=== PATIENT | female | born 1970 | race Caucasian/White ===

== ENCOUNTER 2020-04-02 12:45 | Emergency (ER) | payer OTHER ==
[2020-04-02 12:55] VITALS: BP 109/74; PULSE 77; TEMP 98.9; BMI 34.2
--- NOTE | 2020-04-02 13:17 | PDOC ---
History of Present Illness - General Chief Complaint: Injury Stated Complaint: FALL/RT WRIST/ RT LEG PAIN Time Seen by Provider: 04/02/20 13:02 - History of Present Illness Initial Comments: 04/02/20 13:13 49-year-old female without comorbidities presents for evaluation of right wrist and right knee pain after a fall while going up the steps. While ascending the steps she missed stepped on the last step falling injuring her right wrist and knee no prior problems with either area Past History - Medical History Allergies/Adverse Reactions: Allergies Allergy/AdvReac Type Severity Reaction Status Date / Time No Known Allergies Allergy Unverified 04/02/20 12:55 Cancer: Yes COPD: No - Reproductive History Is Patient Now?: No - Psycho-Social/Smoking History Smoking History: Never smoked Have you smoked in the past 12 months: No Information on smoking cessation initiated: No - Substance Abuse Hx (Audit-C & DAST Scrn) How often the patient has a drink containing alcohol: Monthly or less Number of drinks the patient has on a typical day: 1 or 2 How often the patient has six or more drinks on one occasion: Never Score: In Men: 4 or > Positive; In Women: 3 or > Positive: 1 Screen Result (Pos requires Nsg. Audit-10AR): Negative In the last yr the pt used illegal drug/Rx for NonMed reason: No Score: Yes response is considered Positive: 0 Screen Result (Positive result requires Nsg. DAST-10): Negative Review of Systems - Review of Systems Musculoskeletal: Yes: Joint Pain *Physical Exam - Vital Signs Last Vital Signs Temp Pulse Resp BP Pulse Ox 98.9 F 77 18 109/74 100 04/02/20 12:47 04/02/20 12:47 04/02/20 12:47 04/02/20 12:47 04/02/20 12:47 - Physical Exam 04/02/20 13:14 Right wrist skin color and temperature normal range of motion is full. There is full range of motion of the elbow forearm and fingers. Without gross sensorimotor deficits small superficial abrasion on the dorsum of the right wrist just ulnar to the DRUJ. No tenderness at the DRUJ ulnar styloid scaphoid radial styloid soft upper extremity compartments nontender. Right knee skin color and temperature normal range of motion is full there is a small superficial abrasion on the anterior aspect of the right knee extensor mechanism is intact no instability thighs and calf soft and nontender normal range of motion of the hip and ankle neurovascular intact. Medical Decision Making - Medical Decision Making 04/02/20 13:14 Patient has no tenderness only superficial abrasions. I see no reason to radiate her at this time. We will have her take Tylenol and Motrin for pain and have orthopedic surgery follow-up should she have further issues. I have reviewed the pathophysiology with the patient. They are in agreement with the treatment plan all questions were answered to their satisfaction. Understanding for follow-up without fail was also conveyed to the patient. Again they are in agreement. Discharge - Discharge Information Problems reviewed: Yes Clinical Impression/Diagnosis: Abrasion of right wrist, Abrasion, right knee, initial encounter Condition: Stable Disposition: HOME - Admission No - Follow up/Referral Referrals: Roberto Rodrigues DO [Staff Physician] - - Patient Discharge Instructions Additional Instructions: Return to the emergency room for further issues and without fail follow-up with orthopedic surgery in 2 to 3 days for further evaluation and treatment options. Tylenol and Motrin as directed for pain. - Post Discharge Activity Work/Back to School Note: Back to Work
== END 2020-04-02 13:18 | disposition home or self-care (01) ==
LOC: JERFT 12:45
DX: S80.211A Abrasion, right knee, initial encounter (principal); S60.811A Abrasion of right wrist, initial encounter; W10.8XXA Fall (on) (from) other stairs and steps, initial encounter
CPT/HCPCS: 99282-25

== ENCOUNTER 2021-05-01 16:07 | Emergency (ER) | payer OTHER ==
[2021-05-01 16:11] VITALS: BP 101/69; PULSE 80; TEMP 98.4; BMI 32.5
[2021-05-01] MEDS ORDERED: FLUORESCEIN NA 1 EA STRIP OD ONE (16:26)
[2021-05-01] MEDS ORDERED: TETRACAINE 0.5% HCL 0.6ML DROPPER.BOTTLE OD ONE (16:26)
[2021-05-01] MEDS ORDERED: FLUORESCEIN NA 1 EA STRIP ONE (16:38)
[2021-05-01] MEDS ORDERED: TETRACAINE 0.5% OPHTH SOLN 2 ML BOTTLE ONE (16:38)
[2021-05-01] MEDS ORDERED: ERYTHROMYCIN 0.5% OPHTHALMIC OINTMENT 3.5 GM TUBE OD ONE (16:56)
[2021-05-01] MEDS ORDERED: ERYTHROMYCIN 0.5% OPHTHALMIC OINTMENT 3.5 GM TUBE ONE (17:05)
== END 2021-05-01 17:09 | disposition home or self-care (01) ==
LOC: JERFT 16:07
DX: B30.9 Viral conjunctivitis, unspecified (principal)
CPT/HCPCS: 99283-25

== ENCOUNTER 2021-10-28 15:29 | Emergency (ER) | payer OTHER ==
[2021-10-28 15:43] VITALS: BP 114/68; PULSE 97; TEMP 97.8; BMI 33.4
[2021-10-28] MEDS ORDERED: ACETAMINOPHEN 500 MG TABLET (FP) PO ONE (16:33)
[2021-10-28] MEDS ORDERED: ACETAMINOPHEN 500 MG TABLET (FP) ONE (16:39)
== END 2021-10-28 16:57 | disposition home or self-care (01) ==
LOC: JERFT 15:29
DX: M54.6 Pain in thoracic spine (principal); V49.50XA Passenger injured in collision with unspecified motor vehicles in traffic accident, initial encounter
CPT/HCPCS: 99283-25

== ENCOUNTER 2021-10-29 06:29 | Day surgery (SDC) | payer OTHER ==
[2021-10-29 07:06] VITALS: BMI 33.5
[2021-10-29] MEDS ORDERED: BUPIVACAINE HCL 100 ML ONE (07:30)
[2021-10-29] MEDS ORDERED: BUPIVACAINE HCL 50 ML ONE (07:31)
[2021-10-29] MEDS ORDERED: PROPOFOL 20 ML ONE (07:47)
[2021-10-29] MEDS ORDERED: MIDAZOLAM HCL 2 MG/2 ML SINGLE DOSE VIAL ONE ×2 (07:47)
[2021-10-29] MEDS ORDERED: SUCCINYLCHOLINE CHLORIDE 200 MG/10 ML SYRINGE ONE (07:48)
[2021-10-29] MEDS ORDERED: ceFAZolin SODIUM 1 GM VIAL IVPB ONE (08:10)
[2021-10-29] MEDS ORDERED: BUPIVACAINE HCL/PF 0.5% (5MG/ML) 10 ML VIAL IJ ONE (08:41)
[2021-10-29] MEDS ORDERED: ONDANSETRON 4 MG/2 ML VIAL IVPUSH PRN (09:06)
[2021-10-29] MEDS ORDERED: PROMETHAZINE HCL 25 MG/1 ML VIAL IVPUSH PRN (09:06)
[2021-10-29] MEDS ORDERED: oxyCODONE HCL 5 MG TABLET PO PRN (09:06)
[2021-10-29] MEDS ORDERED: LACTATED RINGERS SOLUTION 1,000 ML IV SCH (09:15)
[2021-10-29] MEDS ORDERED: ONDANSETRON 4 MG/2 ML VIAL ONE (09:35)
[2021-10-29] MEDS ORDERED: ACETAMINOPHEN 1000 MG/100 ML BAG IVPB ONE ×2 (09:50→10:56)
[2021-10-29] MEDS ORDERED: ACETAMINOPHEN INJECTION 100 ML IVPB ONE (09:53)
[2021-10-29] MEDS ORDERED: oxyCODONE HCL 5 MG TABLET ONE (10:24)
[2021-10-29] MEDS ORDERED: oxyCODONE HCL 5 MG TABLET PO ONE (10:30)
[2021-10-29 10:46] VITALS: TEMP 98.2
[2021-10-29 11:17] VITALS: BP 124/78; PULSE 82
== END 2021-10-29 11:10 | disposition home or self-care (01) ==
LOC: FASU 06:29
PROVIDERS: ATTEND Orthopaedic Surgery
PROC: 0SBD4ZZ Excision of Left Knee Joint, Percutaneous Endoscopic Approach (ICD-10-PCS; principal; 2021-10-29 08:00)
DX: S83.282A Other tear of lateral meniscus, current injury, left knee, initial encounter (principal); M25.562 Pain in left knee; M17.12 Unilateral primary osteoarthritis, left knee; X58.XXXA Exposure to other specified factors, initial encounter; Y93.9 Activity, unspecified; Y92.9 Unspecified place or not applicable
CPT/HCPCS: 94760

== ENCOUNTER 2021-12-28 20:16 | Emergency (ER) | payer OTHER ==
[2021-12-28 20:55] VITALS: BP 104/69; PULSE 82; TEMP 97.9; BMI 33.4
[2021-12-28] MEDS ORDERED: KETOROLAC TROMETHAMINE 30 MG/1 ML VIAL ONE (20:59)
[2021-12-28] MEDS ORDERED: KETOROLAC TROMETHAMINE 30 MG/1 ML VIAL IM ONE (20:59)
== END 2021-12-28 21:24 | disposition home or self-care (01) ==
LOC: JERFT 20:16 → JER 20:16 → JERFT 21:24
PROC: 3E0233Z Introduction of Anti-inflammatory into Muscle, Percutaneous Approach (ICD-10-PCS; principal; 2021-12-28)
DX: L03.116 Cellulitis of left lower limb (principal)
CPT/HCPCS: 99284-25

== ENCOUNTER 2022-10-13 03:58 | Day surgery (SDC) | payer OTHER ==
[2022-10-08 11:37] VITALS: BMI 31.7
[2022-10-13] MEDS ORDERED: LIDOCAINE HCL 1%, 10 MG/ML (20ML VIAL) ONE (07:21)
[2022-10-13] MEDS ORDERED: BUPIVACAINE HCL/PF 0.5% (5MG/ML) 10 ML VIAL ONE (07:21)
[2022-10-13] MEDS ORDERED: MIDAZOLAM HCL 2 MG/2 ML SINGLE DOSE VIAL ONE (07:34)
[2022-10-13] MEDS ORDERED: SUCCINYLCHOLINE CHLORIDE 200 MG/10 ML SYRINGE ONE (07:34)
[2022-10-13] MEDS ORDERED: PROPOFOL 20 ML ONE (07:34)
[2022-10-13] MEDS ORDERED: LIDOCAINE HCL 1%, 10 MG/ML (20ML VIAL) INF ONE ×2 (07:38)
[2022-10-13] MEDS ORDERED: BUPIVACAINE HCL/PF 0.5% (5MG/ML) 10 ML VIAL IJ ONE ×2 (07:40)
[2022-10-13] MEDS ORDERED: DEXAMETHASONE SOD PHOSPHATE 4 MG/1 ML VIAL ONE (08:25)
[2022-10-13] MEDS ORDERED: ceFAZolin SODIUM 1 GM VIAL IVPB ONE (08:25)
[2022-10-13] MEDS ORDERED: ceFAZolin SODIUM 1 GM VIAL ONE (08:25)
[2022-10-13] MEDS ORDERED: ONDANSETRON 4 MG/2 ML VIAL ONE (08:25)
[2022-10-13] MEDS ORDERED: KETOROLAC TROMETHAMINE 30 MG/1 ML VIAL ONE (08:54)
[2022-10-13 09:24] VITALS: RESP 18; TEMP 97.7
[2022-10-13 10:45] VITALS: BP 105/62; PULSE 75
== END 2022-10-13 10:25 | disposition home or self-care (01) ==
LOC: JASU-SURG 03:58
PROVIDERS: ATTEND Orthopaedic Surgery
PROC: 0LB70ZZ Excision of Right Hand Tendon, Open Approach (ICD-10-PCS; 2022-10-13)
PROC: 0LN70ZZ Release Right Hand Tendon, Open Approach (ICD-10-PCS; principal; 2022-10-13 08:00)
DX: M65.311 Trigger thumb, right thumb (principal)
CPT/HCPCS: 88304-TC

== ENCOUNTER 2023-06-17 15:27 | Emergency (ER) | payer OTHER ==
[2023-06-17 15:55] VITALS: BP 132/83; PULSE 84; RESP 18; TEMP 97.7; BMI 33.4
== END 2023-06-17 16:41 | disposition home or self-care (01) ==
LOC: JERFT 15:27 → JER 15:27 → JERFT 16:41
DX: S00.532A Contusion of oral cavity, initial encounter (principal); Y04.8XXA Assault by other bodily force, initial encounter; Y99.0 Civilian activity done for income or pay
CPT/HCPCS: 99282-25

== ENCOUNTER 2023-07-09 17:45 | Emergency (ER) | payer OTHER ==
[2023-07-09 17:52] VITALS: BP 112/75; PULSE 80; RESP 18; TEMP 97.5; BMI 33.9
== END 2023-07-09 18:47 | disposition home or self-care (01) ==
LOC: JERFT 17:45 → JER 17:45 → JERFT 18:47
PROC: 0HQFXZZ Repair Right Hand Skin, External Approach (ICD-10-PCS; principal; 2023-07-09)
DX: S61.210A Laceration without foreign body of right index finger without damage to nail, initial encounter (principal); X58.XXXA Exposure to other specified factors, initial encounter
CPT/HCPCS: 99282-25

== ENCOUNTER 2024-01-27 11:30 | Emergency (ER) | payer OTHER ==
[2024-01-27 11:34] VITALS: BP 120/71; PULSE 114; RESP 18; TEMP 97.5; BMI 32.3
[2024-01-27] MEDS ORDERED: DIPHTH,PERTUSS(ACELL),TET 0.5 ML DISP.SYRIN IM ONE (12:34)
[2024-01-27] MEDS: DIPHTH,PERTUSS(ACELL),TET 0.5 ML DISP.SYRIN IM ONE (12:34)
== END 2024-01-27 12:37 | disposition home or self-care (01) ==
LOC: JER 11:30 → JERFT 11:30
PROC: 3E0234Z Introduction of Serum, Toxoid and Vaccine into Muscle, Percutaneous Approach (ICD-10-PCS; principal; 2024-01-27)
DX: S60.021A Contusion of right index finger without damage to nail, initial encounter (principal); W23.1XXA Caught, crushed, jammed, or pinched between stationary objects, initial encounter; Z23 Encounter for immunization
CPT/HCPCS: 73140-TC-RT-FY; 90715; 99284-25

== ENCOUNTER 2024-07-02 11:04 | Emergency (ER) | payer OTHER ==
[2024-07-02 11:40] VITALS: TEMP 97.9; BMI 26.2
[2024-07-02] MEDS: SODIUM CHLORIDE 0.9% 500 ML INFUS.BAG IV ONE (12:58)
[2024-07-02 13:06] LABS: BASO % 0.2 % (0-2.0); EOS % 1.3 % (0-4.5); HEMOGLOBIN 14.4 GM/dL (10.7-15.3); LYMPH % 19.1 % (8-40); MCH 30.6 pg (25.7-33.7); MCHC 34.3 g/dl (32.0-36.0); MEAN CELL VOLUME 89.1 fl (80-96); MEAN PLT VOLUME 7.9 fl (7.5-11.1); MONO % 12.1 % (3.8-10.2); NEUT % 67.3 % (42.8-82.8); PLATELET COUNT 246 10^3/uL (134-434); RBC 4.71 M/mm3 (3.60-5.2); RDW 14.3 % (11.6-15.6); WHITE BLOOD COUNT 5.6 K/mm3 (4.0-10.0)
[2024-07-02 13:18] LABS: POTASSIUM 3.3 mmol/L (3.5-5.1)
[2024-07-02 13:20] LABS: CALCIUM 8.7 mg/dL (8.5-10.1)
[2024-07-02 13:21] LABS: ALBUMIN 3.3 g/dl (3.4-5.0); BLOOD UREA NITROGEN 10.6 mg/dL (7-18); MAGNESIUM 1.7 mg/dL (1.8-2.4)
[2024-07-02 13:24] LABS: CREATININE 0.7 mg/dL (0.55-1.3)
[2024-07-02 13:25] LABS: BILIRUBIN,TOTAL 0.6 mg/dL (0.2-1); TOT PROT 6.4 g/dl (6.4-8.2)
[2024-07-02] MEDS ORDERED: POTASSIUM CHLORIDE TABS 20 MEQ TABLET.ER (FP) PO ONE (13:46)
[2024-07-02] MEDS ORDERED: MAGNESIUM SULFATE IN WATER 2 GM/50 ML IVPB IVPB ONE (13:46)
[2024-07-02] MEDS: MAGNESIUM SULF 50% (8.12 MEQ/2 ML-1 GM VIAL) IVPB ONE (14:01)
[2024-07-02] MEDS: POTASSIUM CHLORIDE TABS 20 MEQ TABLET.ER (FP) PO ONE (14:01)
[2024-07-02] MEDS: POTASSIUM CHLORIDE ORAL LIQUID 20 MEQ/15 ML PO ONE (14:44)
[2024-07-02] MEDS: SODIUM CHLORIDE 0.9% 1000 ML INFUS.BAG IV ONE (15:44)
[2024-07-02] MEDS ORDERED: ACETAMINOPHEN INJECTION 100 ML ONE (15:46)
[2024-07-02] MEDS: ACETAMINOPHEN 1000 MG/100 ML BAG IVPB ONE (15:52)
[2024-07-02 16:33] VITALS: BP 104/75; PULSE 83; RESP 15
== END 2024-07-02 16:45 | disposition home or self-care (01) ==
LOC: JER 11:04
PROC: 3E033NZ Introduction of Analgesics, Hypnotics, Sedatives into Peripheral Vein, Percutaneous Approach (ICD-10-PCS; principal; 2024-07-02)
PROC: 3E033GC Introduction of Other Therapeutic Substance into Peripheral Vein, Percutaneous Approach (ICD-10-PCS; 2024-07-02)
DX: R53.1 Weakness (principal); R19.7 Diarrhea, unspecified
CPT/HCPCS: 36415; 80053; 83735; 85025; 87045; 87046; 93005; 93010; 99284-25; J0131

== ENCOUNTER 2025-01-15 11:26 | Emergency (ER) | payer OTHER ==
[2025-01-15 11:41] VITALS: BP 109/73; PULSE 63; RESP 19; TEMP 97.5; BMI 23.1
== END 2025-01-15 12:00 | disposition home or self-care (01) ==
LOC: JER 11:26 → JERFT 11:26
DX: L25.9 Unspecified contact dermatitis, unspecified cause (principal)
CPT/HCPCS: 99283-25